=== PATIENT | male | born 1955 | race Caucasian/White ===

== ENCOUNTER → 2023-09-16 14:08 | Outpatient (REF) | payer MEDICARE, OTHER, SELFPAY | LOC: RCS 14:08 | PROVIDERS: ATTENDING PHYSICIAN Nurse Practitioner; FAMILY PHYSICIAN Family Medicine | DX: R07.89 Other chest pain (principal) | CPT/HCPCS: 93017; 93350 ==

== ENCOUNTER 2024-03-28 12:56 | Inpatient (IN) | payer MEDICARE, OTHER, SELFPAY ==
[2024-03-28] VITALS (12 sets, daily range): BP systolic 115–146; BP diastolic 72–99; BMI 27.1; BMI 26.5
--- NOTE | 2024-03-28 09:00 | ED.GENMED ---
History of Present Illness
<Emily Gomez PA-C - Last Filed: 03/28/24 10:59>
General
Chief Complaint: Heart Rate Problem
Source: patient
Exam Limitations: none
Time Seen by Provider: 03/28/24 08:54
History of Present Illness
History of Present Illness:
68yoM with a history of hyperlipidemia presenting for evaluation of palpitations. Patient noticed palpitations and sweating when he woke up this morning around 5am. He states it feels like his heart is beating in his throat. His friend is a cardiac
surgeon who checked his heart rate which was irregular and he was told to go to the ED for evaluation. Patient reports mild lightheadedness but denies syncope. No chest pain or shortness of breath. No previous history of afib. 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
Dr. Zaidi. He had a stress echocardiogram in September 2023 which was negative for ischemia and EF was 55-60%.
Past History
<Emily Gomez PA-C - Last Filed: 03/28/24 10:59>
Past History
ED Past Medical History: None
ED Past Surgical History: None
Social History
Tobacco: Non-smoker
Alcohol: None
Drug: None
Living: with family
Phy Exam
<Emily Gomez PA-C - Last Filed: 03/28/24 10:59>
General Physical Exam
General Presentation: well appearing and no apparent distress
General age: appears stated age
General Skin: warm and dry
General Habitus: normal
General Mental: alert
ENT Exam
ENT Exam: normocephalic
Cardiovascular Exam
Cardiovascular Exam: no murmur, irregularly irregular, tachycardia and other (HR in 140s during initial exam)
Pulmonary Exam
Pulmonary Exam: lungs clear, no respiratory distress, no rales, no crackles, no rhonchi and no wheezing
Neurological Exam
Neurological Exam: alert
Nicky Coma Scale
Eye Opening: Spontaneous
Verbal Response: Oriented
Motor Response: Obeys Commands
GCS Total Score: 15
Skin Exam
Skin Exam: normal color and warm/dry
Psychiatric Exam
Psychiatric Exam: normal mood/affect
<Beni Cox DO - Last Filed: 03/28/24 10:27>
Nicky Coma Scale
GCS Total Score: 15
Course
<Emily Gomez PA-C - Last Filed: 03/28/24 10:59>
Orders/Labs/Results
Orders:
Orders
03/28/24 08:37
Electrocardiogram (*1) Urgent
Reason for Study: Atrial Fibrillation
EKG- Treatment ONCE
03/28/24 08:59
Cardiac Monitoring- Treatment ONCE
0.9% Sodium Chloride 1000 ml [Nss] 1,000 ml IV BOLUS
Diltiazem HCl [Cardizem] 15 mg IV NOW STA
03/28/24 09:07
Complete Blood Count/With Diff Urgent
TSH Reflex To Free T4 Urgent
Troponin I Urgent
03/28/24 09:08
Comprehensive Metabolic Panel Urgent
Magnesium Urgent
PTT Urgent
Prothrombin Time Urgent
03/28/24 09:15
Diltiazem 125 mg/125 ml Nss [Cardizem] 125 mg in 125 ml IV PER PROTOCOL
Initial dose in mg/hr, then titrate:: 5
Titrate to keep:: Heart rate 80-100 bpm
Titrate by mg/hr:: 5 mg/hr
Frequency of titrations (minutes):: 15
Maximum dose in mg/hr:: 15
Abnormal Lab Results
03/28/24 03/28/24
09:07 09:08
Absolute Monos (auto) 1.0 H 10^3/uL
(0.1-0.6)
Monocytes % 12.7 H %
(1.7-9.3)
Glucose 105 H mg/dl
(70-99)
03/28/24 09:07
03/28/24 09:08
Vital Signs
Initial and Last Documented VS:
Initial Vital Signs
Temp Pulse Resp BP Pulse Ox
97.6 F 62 18 116/72 100
03/28/24 08:44 03/28/24 08:44 03/28/24 08:44 03/28/24 08:44 03/28/24 08:44
Last Documented Vital Signs
Temp Pulse Resp BP Pulse Ox
97.6 F 93 19 117/87 97
03/28/24 08:44 03/28/24 10:00 03/28/24 10:00 03/28/24 10:00 03/28/24 10:00
<Beni Cox, - Last Filed: 03/28/24 10:27>
Orders/Labs/Results
Orders:
Orders
03/28/24 08:37
Electrocardiogram (*1) Urgent
Reason for Study: Atrial Fibrillation
EKG- Treatment ONCE
03/28/24 08:59
Cardiac Monitoring- Treatment ONCE
0.9% Sodium Chloride 1000 ml [Nss] 1,000 ml IV BOLUS
Diltiazem HCl [Cardizem] 15 mg IV NOW STA
03/28/24 09:07
Complete Blood Count/With Diff Urgent
TSH Reflex To Free T4 Urgent
Troponin I Urgent
03/28/24 09:08
Comprehensive Metabolic Panel Urgent
Magnesium Urgent
PTT Urgent
Prothrombin Time Urgent
03/28/24 09:15
Diltiazem 125 mg/125 ml Nss [Cardizem] 125 mg in 125 ml IV PER PROTOCOL
Initial dose in mg/hr, then titrate:: 5
Titrate to keep:: Heart rate 80-100 bpm
Titrate by mg/hr:: 5 mg/hr
Frequency of titrations (minutes):: 15
Maximum dose in mg/hr:: 15
Abnormal Lab Results
03/28/24 03/28/24
09:07 09:08
Absolute Monos (auto) 1.0 H 10^3/uL
(0.1-0.6)
Monocytes % 12.7 H %
(1.7-9.3)
Glucose 105 H mg/dl
(70-99)
03/28/24 09:07
03/28/24 09:08
Vital Signs
Initial and Last Documented VS:
Initial Vital Signs
Temp Pulse Resp BP Pulse Ox
97.6 F 62 18 116/72 100
03/28/24 08:44 03/28/24 08:44 03/28/24 08:44 03/28/24 08:44 03/28/24 08:44
Last Documented Vital Signs
Temp Pulse Resp BP Pulse Ox
97.6 F 93 19 117/87 97
03/28/24 08:44 03/28/24 10:00 03/28/24 10:00 03/28/24 10:00 03/28/24 10:00
<Emily Gomez PA-C - Last Filed: 03/28/24 10:59>
MDM/Problems Addressed
Differential Diagnosis Includes:
68yoM here with palpitations and sweating that began when he woke up from sleep this morning. HR was irregular. EKG in triage shows rapid afib. No prior history of afib. BP stable. He is non-toxic appearing. Exam otherwise reassuring. Differential
diagnosis includes but is not limited to: arrhythmia, electrolyte abnormality, thyroid dysfunction
Initial ED plan: Patient placed on case monitor. Check cardiac labs, TSH, magnesium, and EKG. 15mg IV Cardizem and fluid bolus ordered.
<Emily Gomez PA-C - Last Filed: 03/28/24 10:59>
*EKG
Interpreted by ED Provider?: Yes
EKG Intrepretation Date: 03/28/24
Heart Rate: 105
Rate: tachycardiac
Rhythm: a-fib
Boelus: normal axis
Interval: normal interval
QRS Pattern: normal QRS
Ischemia: non-specific ST changes
*Critical Care Note
Total Time (30-74mins, 75-104mins- exclusive of procedures): Not Applicable
<Emily Gomez PA-C - Last Filed: 03/28/24 10:59>
Update Note
Update Note:
Labs unremarkable including normal electrolytes, TSH, and troponin. Cardizem gtt initiated. Heart rates controlled in the 80s although patient remains in afib. Patient reports intermittent symptoms over the past few weeks and is not anticoagulated.
Will defer cardioversion. Patient admitted for further management.
ED Attending Note
<Emily Gomez PA-C - Last Filed: 03/28/24 10:59>
-
Portions of this chart may have been created with voice recognition software.� Occasional wrong word or��sound alike� substitutions may have occurred due to the inherent limitations of voice recognition software.
<Beni Cox DO - Last Filed: 03/28/24 10:27>
ED Attending Note
Patient seen and examined by attending physician: Yes
I performed the substantive portion of visit, reviewed & personally made and approve the management plan that is documented in note by myself or BALJINDER.: Yes
ED Attending Note:
I evaluated the patient at bedside. After the patient was placed on Cardizem drip, the patient is rate controlled but remains in A-fib. Rates are in the 80s. Lab work unremarkable. Considered electrical cardioversion as most of his symptoms
started this morning around 5 AM however he also reports some symptoms intermittently over the last few weeks and he is not currently anticoagulated.
Discharge Plan
Departure
Patient Disposition: Admit
Date of Disposition: 03/28/24
Time of Disposition: 10:18
Presentation/result/management discussed w/ accepting /DO: Hospitalist
Discharge Problem:
New onset atrial fibrillation
Prescriptions:
No Action
tamsulosin [Flomax] 0.4 mg Capsule
0.4 mg PO DAILY
ezetimibe [Zetia] 10 mg Tablet
10 mg PO DAILY
rosuvastatin [Crestor] 40 mg Tablet
40 mg PO DAILY
Theragen Tablet
1 tab PO DAILY
aspirin 81 mg Tablet,Delayed Release (Dr/Ec)
81 mg PO DAILY
Referrals:
Kamlesh Tavera DO [Family Provider] -
Interventions
Interventions:
*Risk Screen - Suicide Last Done: 03/28/24 08:44
*General Assessment Last Done: 03/28/24 08:44
*Neglect/Abuse Screening Last Done: 03/28/24 08:44
ED- Cardiac Assessment Last Done: 03/28/24 09:10
ED- Pulmonary Assessment Last Done: 03/28/24 09:10
Discharge Date and Time
Print Language: SWISS
[2024-03-28] MEDS: NSS 1000 IV (09:05)
[2024-03-28] MEDS: CARDIZEM 15 MG IV (09:05)
[2024-03-28] MEDS: CARDIZEM 125 IV (09:22)
[2024-03-28 09:36] LABS: % Basophils 1.4 % (0-2); % Eosinophils 3.3 % (0-6); % Immature Granulocytes 0.3 % (0-0.5); % Lymphocytes 34.1 % (20.5-51.1); % Monocytes 12.7 % (1.7-9.3); % Neutrophils 48.2 % (42.2-75.2); Absolute Basophils 0.1 10^3/uL (0-0.2); Absolute Eosinophils 0.3 10^3/uL (0-0.7); Absolute Lymphocytes 2.6 10^3/uL (1.2-3.4); Absolute Neutrophils 3.7 10^3/uL (1.4-6.5); Hematocrit 48.2 % (39.0-52.0); Hemoglobin 15.9 g/dL (13.0-18.0); Mean Corpuscular Hgb 29.7 pg (27.0-31.0); Mean Corpuscular Volume 89.9 fL (80.0-94.0); Mean Platelet Volume 9.3 fL (7.4-10.4); Nucleated Red Blood Cells % 0 % (-); Platelet Count 300 10^3/uL (130-400); Red Blood Cell Count 5.36 10^6/uL (4.70-6.10); Red Cell Dist. Width 12.8 % (11.5-14.5); White Blood Cell Count 7.6 10^3/uL (4.8-10.8)
[2024-03-28 09:46] LABS: ALT (SGPT) 50 U/L (0-50); AST (SGOT) 42 U/L (17-59); Albumin 4.7 g/dl (3.5-5.0); Alkaline Phosphatase 50 U/L (38-126); Blood Urea Nitrogen 18 mg/dl (9-20); Calcium 9.8 mg/dl (8.4-10.2); Carbon Dioxide 30 mmol/L (22-30); Chloride 106 mmol/L (98-107); Estimated Creatinine Clearance 90 ml/min; Glucose 105 mg/dl (70-99); Potassium 4.3 mmol/L (3.5-5.1); Sodium 142 mmol/L (135-145); Total Bilirubin 0.5 mg/dl (0.2-1.3); Total Protein 7.3 g/dl (6.3-8.2); eGFR > 60.00
[2024-03-28 09:51] LABS: INR 0.95; PT 12.9 Sec (11.4-14.6)
[2024-03-28 09:52] LABS: APTT 33.5 Sec (23.4-35.0)
[2024-03-28 09:57] LABS: Troponin I < 0.012 ng/ml
--- NOTE | 2024-03-28 11:17 | CON.CAR ---
Documented by User: EMI Larry 03/28/24 14:05
Consultation
Consultation Request
Date/Time Consultation Requested: 03/28/24 1019
Date/Time Consultation Performed: 03/28/24 1105
Requesting Provider: Emily Gomez
Performing Provider: Pamela MIDDLETON for Dr. Cool
Reason for Consultation: AFIB
Medical History
-
Chief Complaint: palpitations
History of Present Illness:
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 A doctor he knows assessed
his pulse and told him it was irregular and to go to the ER. He was seen to be in AFIB with RVR and is easily rate-controlled with IV diltiazem.
Past Medical History
Past Medical History: Hypercholesterolemia and Other (as above)
Social History
Tobacco: Non-Smoker
Alcohol: None
Family History
Family History: Other (brother and sister have afib)
Allergies / Home Medications
Allergy/AdvReac Type Severity Reaction Status Date / Time
No Known Allergies Allergy Verified 03/28/24 08:44
�Medication �Instructions �Recorded �Confirmed �Type
aspirin 81 mg tablet,delayed 81 mg PO DAILY 03/28/24 03/28/24 History
release
ezetimibe 10 mg tablet (Zetia) 10 mg PO DAILY 03/28/24 03/28/24 History
rosuvastatin 40 mg tablet (Crestor) 40 mg PO DAILY 03/28/24 03/28/24 History
tamsulosin 0.4 mg capsule (Flomax) 0.4 mg PO DAILY 03/28/24 03/28/24 History
therapeutic multivitamin 1 tab PO DAILY 03/28/24 03/28/24 History
Review of Systems
-
History Source: Patient
All other systems: Negative unless noted
Cardiac: Palpitations
Physical Exam
Vital Signs
Temp Pulse Resp BP Pulse Ox
97.6 F 88 14 117/87 97
03/28/24 08:44 03/28/24 11:00 03/28/24 11:00 03/28/24 10:00 03/28/24 10:00
Lab Results
03/28/24 09:07
03/28/24 09:08
Troponin I < 0.012 ng/ml 03/28/24 09:07
Physical Exam
General: Well Developed, Well Nourished and No Apparent Distress
HEENT: Normocephalic and Anicteric
Respiratory: Clear and Non Labored Respirations
Cardiac: Irregular Rhythm
Musculoskeletal: No Edema
Skin: Warm and Dry
Neuro: AO x 3
Psych: Calm
Impression / Plan
-
AFIB with RVR, new diagnosis, onset not known:
-rate-controlled on diltiazem now. Continue IV diltiazem, which requires intensive monitoring. Follow telemetry.
-start IV heparin, which requires intensive monitoring- transition to Eliquis tomorrow- c/s for pricing. [id number] score is 1 for age. Denies any falls or bleeding issues.
-TSH WNL. Sleep apnea testing as OP.
-JAYNE/CV tomorrow if remains in AFIB- we discussed this plan/procedure and patient is agreeable.
-echo today
Dyslipidemia:
-continue rosuvastatin and Zetia
BPH:
-on Flomax
Data Reviewed
-
EKG: Tracing Personally Visualized and interpreted (AFIB RVR 105 BPM)
Medical Tests (Nuc Med, Echo etc): Report Reviewed by me (Stress echo 09/16/23: Normal Stress Echocardiogram with normal hemodynamic response to exercise. Excellent exercise capacity for age. Overall, low risk stress test. )
Labs: Labs Reviewed by me

Documented by User: Baljeet Cool MD 03/28/24 14:01
Impression / Plan
-
AFIB with RVR, new diagnosis, onset not known:
-rate-controlled on diltiazem now. Continue IV diltiazem, which requires intensive monitoring. Follow telemetry.
-start IV heparin, which requires intensive monitoring- transition to Eliquis tomorrow- c/s CM for pricing. [id number] score is 1 for age. Denies any falls or bleeding issues.
-TSH WNL. Sleep apnea testing as OP.
-JAYNE/CV tomorrow if remains in AFIB- we discussed this plan/procedure and patient is agreeable.
-echo today
Dyslipidemia:
-continue rosuvastatin and Zetia
BPH:
-on Flomax
Patient seen and examined in collaboration with CHLORINATION OPERATOR; agree with below.
68-year-old male with new onset atrial fibrillation (C2V score = 1).
-Continue Cardizem drip.
-Heparin drip.
-Echocardiogram today.
-Arrange JAYNE/cardioversion tomorrow if patient remains in A-fib.
-NPO after MN.
[2024-03-28] MEDS: HEPARIN 4000 UNITS IV (12:34)
[2024-03-28] MEDS: HEPARIN 25000 UNITS/250 ML IV (12:34)
--- NOTE | 2024-03-28 13:14 | HPS.HSE ---
Family Physician
-
Family Physician: Kamlesh Tavera
Chief Complaint
-
New Onset Atrial Fibrillation
History of Present Illness
68-year-old male with a past medical history of hyperlipidemia presented for evaluation of palpitations that began this morning at 5 AM. He states that he felt like his heart was beating in his throat with an abnormal rhythm. His friend who is a
cardiac surgeon checked his heart rate and found it to be irregular and told him to go to the ED for evaluation. Patient said he has had instances of similar symptoms in the past but they usually self resolving within a few minutes. In the ED
patient reports that he has mild lightheadedness but denies any syncope. Patient has a known history of nonobstructive atherosclerosis of the coronary along with aortic iliac atherosclerosis for which he is on aspirin therapy. He reports that his
family has a history of A-fib that affect his brother and sister and that his father from heart attack while he was in his 50s. 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
His previous stress echocardiogram in September of this year was negative for ischemia and ejection fraction was 55-60%. Currently reports no other symptoms.
Medical History
Past Medical History
Past Medical History: Reports Hypercholesterolemia
Additional Past Medical History:
BPH, Artherosclerosis of Iliac Artery, Coronary-Myocardial bridge, Nonobstructive Artherosclerosis of Coronary Artery, Aortic Atherosclerosis
Past Surgical History: Reports Orthopedic
Additional Past Surgical History:
Left knee arthroscopy with Partial medial meniscectomy And debridement of chondral flap tear Medial femoral condyle April 08, 2010
Left LE varicose vein procedure 01/2022
Social History
Tobacco: Non-smoker
Alcohol: None
Drug: None
Living: With Family
Family History
Family History: CAD, Cancer and Other (Father: , Heart Disease Mother: , Alzheimer's Disease, stroke, kidney cancer 5 brother(s) , 3 sister(s) . Brother-rectal cancer Brother-heart disease (A-Fib) Brother-diabetes. Sister- A-Fib No
children.)
Allergies / Home Medications
Allergies reflects when Allergies were last updated in [employer].
Home Medications with original date entered in [employer]
Allergy/Medication List:
Allergies
Allergy/AdvReac Type Severity Reaction Status Date / Time
No Known Allergies Allergy Verified 03/28/24 08:44
Home Medications
aspirin 81 mg tablet,delayed release 81 mg PO DAILY 03/28/24
ezetimibe 10 mg tablet (Zetia) 10 mg PO DAILY 03/28/24
rosuvastatin 40 mg tablet (Crestor) 40 mg PO DAILY 03/28/24
tamsulosin 0.4 mg capsule (Flomax) 0.4 mg PO DAILY 03/28/24
therapeutic multivitamin 1 tab PO DAILY 03/28/24
Review of Systems
-
History Source: Patient
A 12 point ROS was completed and negative except as noted: Yes
Constitutional: Reports No Symptoms
EENT: Reports No Symptoms
Respiratory: Denies Cough or Trouble Breathing
Cardiac: Reports See HPI and Palpitations; Denies Chest Pain or Syncope
Abdomen/GI: Reports No Symptoms
: Reports No Symptoms
Musculoskeletal: Reports No Symptoms
Skin: Reports No Symptoms
Neurological: Reports See HPI
Endocrine: Reports No Symptoms
Hematologic/Lymphatic: Reports No Symptoms
Psych: Reports No Symptoms
Physical Exam
Vital Signs
Vital Signs
Temp Pulse Resp BP Pulse Ox
97.6 F 88 14 117/87 97
03/28/24 08:44 03/28/24 11:00 03/28/24 11:00 03/28/24 10:00 03/28/24 10:00
Physical Exam
General: Well Developed, Well Nourished, No Apparent Distress and Comfortable
HEENT: NormoCephalic, Anicteric, Moist mucous membranes and Atraumatic
Respiratory: Clear and Non Labored Respirations
Cardiac: S1/S2 and Irregular Rhythm
GI: Soft, Non Tender and Non Distended
Musculoskeletal: No Clubbing, No Cyanosis and No Edema
Skin: Warm
Neuro: Awake, Alert, Oriented, AO x 3 and No Motor Deficits
Psych: Calm and Intact Judgment/Insight
Laboratory Results
-
03/28/24 09:07
03/28/24 09:08
Laboratory Results
PT 12.9 Sec (11.4-14.6) 03/28/24 09:08
INR 0.95 03/28/24 09:08
APTT 33.5 Sec (23.4-35.0) 03/28/24 09:08
Total Bilirubin 0.5 mg/dl (0.2-1.3) 03/28/24 09:08
AST 42 U/L (17-59) 03/28/24 09:08
ALT 50 U/L (0-50) 03/28/24 09:08
Alkaline Phosphatase 50 U/L (38-126) 03/28/24 09:08
Troponin I < 0.012 ng/ml 03/28/24 09:07
Data Reviewed
-
Medical Tests (Nuc Med, Echo, EKG etc): Report Reviewed by me, Discussed with Physician, Discussed with Patient and Discussed with Family
Lab Data: Labs Reviewed by me, Discussed with Physician, Discussed with Patient and Discussed with Family
Impression/Plan
-
Assessment:
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 Patient was diagnosed with an
abnormal heart rhythm and was started on IV Diltiazem. Patient's heart rate is now under control but he still remains in A-Fib.
PLAN:
#Newly diagnosed AFIB with RVR with unknown onset
-Patient rate-controlled on IV Diltiazem in the ED
-Cardiology consulted, input appreciated
-Continuing IV Diltiazem upon admission
-Started on IV heparin and planned to transition to Eliquis tomorrow
-[id number] score-> 1
-TSH normal
-Planned for JAYNE/CV tomorrow if patient remains in AFIB
-Echocardiogram for later today
#Hyperlipidemia
-Continue Rosuvastatin and Zetia
#BPH
-Continue Flomax
Full Code
DVT Prophylaxis- Heparin
--- NOTE | 2024-03-28 17:44 | PTCARENOTE ---
Received pt from ER via stretcher, accompanied by ER staff. Pt AAO x3, CHAWLA well, ambulatory to room, no c/o weakness/dizziness. VSS. PLaced on telemetry:Afib. On room air- pulse ox 95%, no SOB noted. Abd soft, rounded, to start chol lowering
diet; aware of NPO past midnight for possible JAYNE/cardioversion. pt had BM in BR after arrival to unit. Voided in BR upon arrival to room. afebrile; skin W/D/I. IV Heparin drip @ 1000 units hr (10 ml/hr) infusing via Rt hand site and Cardizem
drip @ 5 ml/hr (5 mg/hr) infusing via Rt AC site without sx of infiltration. Oriented to 4east, currently resting in bed, no c/o. Will continue to monitor.v
[2024-03-28 18:54] LABS: APTT 94.1 Sec (23.4-35.0)
[2024-03-28 18:56] LABS: D-Dimer < 0.27 ug/mlFEU (0.00-0.50)
[2024-03-29 01:30] LABS: APTT 102.2 Sec (23.4-35.0)
[2024-03-29 03:18] VITALS: BP 127/71
--- NOTE | 2024-03-29 06:51 | W.PN.UPDATE ---
Update Note
Progress Note Update
RN notified SUPERVISOR BAKERY SANITATION HR 60's-70's, 125/79. on Cardizem drip. EKG confirms NSR. Patient asymptomatic. Will hold Cardizem drip at present.
[2024-03-29 08:08] VITALS: BP 122/69
[2024-03-29] MEDS: FLOMAX 0.4 MG PO (08:33)
[2024-03-29] MEDS: ZETIA 10 MG PO (08:33)
[2024-03-29] MEDS: ASPIR LOW (ENTERIC COATED) 81 MG PO (08:33)
[2024-03-29] MEDS: CRESTOR 40 MG PO (08:33)
[2024-03-29] MEDS: THERAGRAN 1 TABLET PO (08:33)
[2024-03-29 08:40] LABS: Hematocrit 43.9 % (39.0-52.0); Hemoglobin 14.8 g/dL (13.0-18.0); Mean Corp Hgb Conc. 33.7 g/dL (33.0-37.0); Mean Corpuscular Hgb 29.8 pg (27.0-31.0); Mean Corpuscular Volume 88.5 fL (80.0-94.0); Mean Platelet Volume 9.4 fL (7.4-10.4); Platelet Count 274 10^3/uL (130-400); Red Blood Cell Count 4.96 10^6/uL (4.70-6.10); Red Cell Dist. Width 13.1 % (11.5-14.5); White Blood Cell Count 8.2 10^3/uL (4.8-10.8)
[2024-03-29 09:02] LABS: Blood Urea Nitrogen 17 mg/dl (9-20); Calcium 9.5 mg/dl (8.4-10.2); Carbon Dioxide 26 mmol/L (22-30); Chloride 103 mmol/L (98-107); Estimated Creatinine Clearance 103 ml/min; Glucose 94 mg/dl (70-99); Potassium 4.4 mmol/L (3.5-5.1); Sodium 138 mmol/L (135-145); eGFR > 60.00
[2024-03-29 09:04] LABS: APTT 89.5 Sec (23.4-35.0)
--- NOTE | 2024-03-29 09:34 | W.PN.HOSP.TC ---
Today's Communication/Plan
-
Patient has been feeling well and in sinus rhythm now. Will await Cardio input about whether he can be discharged today.
Assessment / Plan
Assessment / Plan
Assessment:
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 Patient was diagnosed with an
abnormal heart rhythm and was started on IV Diltiazem. Patient's heart rate is now under control and is now in sinus rhythm.
PLAN:
#Newly diagnosed AFIB with RVR with unknown onset
-Patient rate-controlled on IV Diltiazem in the ED then continued upon admission
-Cardiology consulted, input appreciated
-Echo 03/28/2024: LV ejection fraction is 55-60%, by visual assessment. No regional wall motion abnormalities are seen.
Enlarged right ventricular size. Normal right ventricular systolic function.
Trace tricuspid regurgitation. Estimated pulmonary artery pressure of 20-25 mmHg.
-Patient returned to sinus rhythm and Diltiazem gtt was discontinued
-Started on IV heparin and planned to transition to Eliquis tomorrow
-[id number] score-> 1
-TSH normal
-Awaiting Cardio input for potential discharge today
#Hyperlipidemia
-Continue Rosuvastatin and Zetia
#BPH
-Continue Flomax
Full Code
DVT Prophylaxis- Heparin
Anticipated Discharge: Today
Subjective/Interval History
-
Date of Service: March 29, 2024
Patient says that he had a great and uneventful night. His heart palpitations have seemed to resolve and he has no further symptoms at this time.
Objective Data
-
Labs:
Laboratory Results
03/29/24 03/29/24
01:01 08:01
WBC 8.2
Hgb 14.8
Hct 43.9
Plt Count 274
APTT 102.2 H 89.5 H
Sodium 138
Potassium 4.4
Chloride 103
Carbon Dioxide 26
BUN 17
Creatinine 0.7
Glucose 94
Calcium 9.5
Vital Signs:
Vital Signs
Temp Pulse Resp BP Pulse Ox
97.4 F 58 18 122/69 96
03/29/24 08:08 03/29/24 08:08 03/29/24 08:08 03/29/24 08:08 03/29/24 08:08
I&O
03/28/24 03/29/24 03/30/24
06:59 06:59 06:59
Intake Total 306 / 306
Output Total 350 / 350
Balance -44 / -44
Review of Systems
-
History Source: Patient
Constitutional: Reports No Symptoms
EENT: Reports No Symptoms Reported
Respiratory: Denies Cough or Trouble Breathing
Cardiac: Denies Chest Pain, Palpitations or Syncope
Abdomen/GI: Denies Abdominal Pain, Nausea or Vomiting
Musculoskeletal: Reports No Symptoms
Skin: Reports No Symptoms
Neuro: Denies Dizzy, Headache or Weakness
Endocrine: Reports No Symptoms
Hematologic / Lymphatic: Reports No Symptoms
Allergy / Immunology: Reports No Symptoms
Physical Exam
-
General: Well Developed, Well Nourished, No Apparent Distress and Comfortable
HEENT: Normocephalic and Atraumatic
Respiratory: Clear to Auscultation and Non Labored Respirations
Cardiac: Regular Rhythm and S1/S2
GI: Soft, Nontender and Nondistended
Musculoskeletal: No Clubbing, No Cyanosis and No Edema
Skin: Warm
Neuro: Awake, Alert, Oriented, AO x 3 and No Motor Deficits
Psych: Calm
Data Reviewed
-
Medical Tests (Nuc Med, Echo etc): Report Reviewed by me, Discussed with Physician, Discussed with Nurse and Discussed with Patient
Labs: Labs Reviewed by me, Discussed with Physician and Discussed with Patient
--- NOTE | 2024-03-29 11:19 | W.PN.CD ---
Today's Communication / Plan
-
Start Diltiazem 120mg daily
Start Apixaban 5mg BID
I have requested follow-up with our office in 2-4 weeks. We will call him with an appointment.
Impression / Plan
-
68-year-old male with new onset atrial fibrillation (C2V score = 1).
AFIB with RVR, new diagnosis, onset not known:
-Resolved with IV Diltiazem. Now back in SR
-switch diltiazem to PO 120mg daily
-[id number] score is 1 for age. Denies any falls or bleeding issues.
-Start Apixaban 5mg BID
-Sleep apnea testing as OP.
Dyslipidemia:
-continue rosuvastatin and Zetia
BPH:
-on Flomax
Subjective: Patient broke out of afib and back into sinus rhythm obernight. Feels fine this morning. Ready to go home. Telemetry with sinus rhythm. HR 60s.
Physical Exam
Vital Signs/Labs
Vital Signs
Temp Pulse Resp BP Pulse Ox
97.4 F 58 18 122/69 96
03/29/24 08:08 03/29/24 08:08 03/29/24 08:08 03/29/24 08:08 03/29/24 08:08
03/28/24 03/29/24 03/30/24
06:59 06:59 06:59
Actual Weight 83.688 kg
03/29/24 08:01
03/29/24 08:01
PT 12.9 Sec (11.4-14.6) 03/28/24 09:08
INR 0.95 03/28/24 09:08
APTT 89.5 Sec (23.4-35.0) H 03/29/24 08:01
Magnesium 2.0 mg/dl (1.6-2.3) 03/28/24 09:08
LAB Results
03/28/24
09:07
Troponin I < 0.012
Physical Exam
Constitutional: No acute distress and Comfortable
Cardiovascular: Rhythm & rate is regular, Pedal edema is absent, JVD pressure is normal, S1S2 is normal and Murmur/rub/gallop absent
Respiratory: Respiratory effort normal and Lungs clear to auscul.
Neuro/Psych: AO x 3
Data Reviewed
-
Date of Service: March 29, 2024
Medical Decision Making: Reviewed Test Results, Independent Historian Assessment, Test Interpretation and Review of Case with other Provider
EKG: Tracing Personally Visualized and interpreted
Echo: Report Reviewed by me
Labs: Labs Reviewed by me
[2024-03-29 11:55] VITALS: BP 132/105
--- NOTE | 2024-03-29 13:04 | PTCARENOTE ---
Reviewed discharge instructions with patient. Patient given samples of Eloquis by cardiology. Patient understands usage and to take bleeding precautions. Patient received confirmation that medications are available for picker and packer at [facility]. IVs removed
and tele removed. Vital signs stable. Patient left ambulatory with staff escort. Patient aware of signs/symptoms to call MD and to call for follow up appointment for cardiology.
--- NOTE | 2024-03-29 13:20 | CM ---
CM attempted to complete IA, however pt was already discharged. I had obtained pricing for Apixaban and Xarelto which was shared with Kamlesh by the physician. Samples provided by cardiology.
Pt was discharged to home without CM assessment.
--- NOTE | 2024-03-29 14:41 | W.DCSUMMARY ---
Documented by User: Elsy Barth MD, Resident 03/29/24 15:14
Discharge Summary
Discharge Data
Date of Admission: 03/28/24
Date of Discharge: 03/29/24
-
Pending Results: No
Hospital Course
Discharging Physician : Dr. Jose R Ellison, Dr. Elsy Barth
Disposition : Home
Primary care physician : Dr. Kamlesh Tavera
Principal Discharge diagnosis : New Onset Atrial Fibrillation
Chronic Discharge diagnosis : Nonobstructive ASCVD (Coronary, Aortoiliac), Myocardial Bridging Hyperlipidemia, BPH
Hospital Course :
68 year old male with a past medical history of nonobstructive ASCVD (Coronary, Aortoiliac), Myocardial Bridging Hyperlipidemia, and BPH came to the [facility] ED on 03/28/2024 due to heart palpitations that had started 5am that morning. Patient
stated that he felt like his heart was beating in his throat with an abnormal rhythm. Patient was found to be tachycardic and his heart rhythm was in A-Fib in the ED. He was subsequently started on a Cardizem drip and his heart rate improved,
however he continued to remain in A-Fib. Patient's other medications were continued at this time. Cardiology was consulted at this time and patient was started on a heparin drip and underwent an Echocardiogram which showed no abnormalities other
than an enlarged right ventricular size. His heart rhythm confirmed to normal sinus rhythm and patient continued to be asymptomatic as his Cardizem drip was held. Patient was evaluated by Cardiology and discharged with a prescription for Diltiazem
120mg PO daily and to start Apixaban 5mg BID. He will follow up with Cardiology in the outpatient setting. He had no symptoms or complaints upon discharge.
Important imaging findings :
Electrocardiogram (03/28/2024)
ATRIAL FIBRILLATION WITH RAPID VENTRICULAR RESPONSE
NONSPECIFIC ST ABNORMALITY
ABNORMAL ECG
WHEN COMPARED WITH ECG OF 08-APR-2010 11:21,
ATRIAL FIBRILLATION HAS REPLACED SINUS RHYTHM
VENT. RATE HAS INCREASED BY [address] NOW DEPRESSED IN ANTERIOR LEADS
NONSPECIFIC T WAVE ABNORMALITY NOW EVIDENT IN INFERIOR LEADS
Echocardiogram (03/28/2024)
LV ejection fraction is 55-60%, by visual assessment. No regional wall motion abnormalities are seen.
Enlarged right ventricular size. Normal right ventricular systolic function.
Trace tricuspid regurgitation. Estimated pulmonary artery pressure of 20-25 mmHg.
Discharge Plan
-
Patient Disposition: Home (Routine Discharge)
Discharge Diagnosis/Procedures: New Onset A-Fib
Condition: Good
Diet: Low Cholesterol
Activity: No restrictions and As tolerated
Driving Restrictions: As prior to admission
Bathing Restrictions: None
Referrals:
Kamlesh Tavera DO [Family Provider] -
Ramesh Zaidi MD [Active] -
Additional Discharge Medication Instructions: Follow up with cardiology (Appt on 04/20/2024 at 8:40am)
Take 1 Pill of Cardizem 120mg once daily
Take Eliquis 5mg twice daily
Prescriptions:
New
diltiazem HCl 120 mg capsule,extended release 24hr
120 mg PO DAILY 30 Days Qty: 30 2RF
Eliquis 5 mg tablet
5 mg PO BID 30 Days Qty: 60 0RF
Continued
tamsulosin [Flomax] 0.4 mg Capsule
0.4 mg PO DAILY
ezetimibe [Zetia] 10 mg Tablet
10 mg PO DAILY
rosuvastatin [Crestor] 40 mg Tablet
40 mg PO DAILY
therapeutic multivitamin Tablet
1 tab PO DAILY
aspirin 81 mg Tablet,Delayed Release (Dr/Ec)
81 mg PO DAILY
Discharge Orders:
Discharge Patient (As Directed); Ordered 03/29/24
Ordered By: Elsy Barth
Discharge Date and Time
Discharge Date/Time: 03/29/24 12:43
Print Language: SWISS

Documented by User: Jose R Ellison DO 03/30/24 09:13
Discharge Summary
Discharge Data
Date of Admission: 03/28/24
Date of Discharge: 03/30/24
Discharge Plan
-
Patient Disposition: Home (Routine Discharge)
Discharge Diagnosis/Procedures: New Onset A-Fib
Condition: Good
Diet: Low Cholesterol
Activity: No restrictions and As tolerated
Driving Restrictions: As prior to admission
Bathing Restrictions: None
Referrals:
Kamlesh Tavera DO [Family Provider] -
Ramesh Zaidi MD [Active] -
Additional Discharge Medication Instructions: Follow up with cardiology (Appt on 04/20/2024 at 8:40am)
Take 1 Pill of Cardizem 120mg once daily
Take Eliquis 5mg twice daily
Prescriptions:
New
diltiazem HCl 120 mg capsule,extended release 24hr
120 mg PO DAILY 30 Days Qty: 30 2RF
Eliquis 5 mg tablet
5 mg PO BID 30 Days Qty: 60 0RF
Continued
tamsulosin [Flomax] 0.4 mg Capsule
0.4 mg PO DAILY
ezetimibe [Zetia] 10 mg Tablet
10 mg PO DAILY
rosuvastatin [Crestor] 40 mg Tablet
40 mg PO DAILY
therapeutic multivitamin Tablet
1 tab PO DAILY
aspirin 81 mg Tablet,Delayed Release (Dr/Ec)
81 mg PO DAILY
Discharge Orders:
Discharge Patient (As Directed); Ordered 03/29/24
Ordered By: Elsy Barth
Discharge Date and Time
Discharge Date/Time: 03/29/24 12:43
Print Language: SWISS
== END 2024-03-29 12:43 | disposition home or self-care (01) | DRG 309 ==
LOC: 4 EAST ACU 12:56
PROVIDERS: Nurse Practitioner; Physician Assistant; ADMITTING PHYSICIAN Internal Medicine; CONSULT PHYSICIAN Internal Medicine; EMERGENCY PHYSICIAN Emergency Medicine; FAMILY PHYSICIAN Family Medicine
DX: I48.91 Unspecified atrial fibrillation (principal); Q24.5 Malformation of coronary vessels; I25.10 Atherosclerotic heart disease of native coronary artery without angina pectoris; N40.0 Benign prostatic hyperplasia without lower urinary tract symptoms; I70.0 Atherosclerosis of aorta; I51.7 Cardiomegaly; E78.00 Pure hypercholesterolemia, unspecified; Z82.49 Family history of ischemic heart disease and other diseases of the circulatory system; Z79.82 Long term (current) use of aspirin; Z79.899 Other long term (current) drug therapy
CPT/HCPCS: 80048; 80053; 83735; 84443; 84484; 85025; 85027; 85379; 85610; 85730; 93005; 93306; 96365; 96366; 96367; 99285

== ENCOUNTER → 2024-04-26 10:21 | Outpatient (REF) | payer MEDICARE, OTHER, SELFPAY | LOC: RCS 10:21 | PROVIDERS: ATTENDING PHYSICIAN Nurse Practitioner Gerontology; FAMILY PHYSICIAN Family Medicine | DX: I48.0 Paroxysmal atrial fibrillation (principal) | CPT/HCPCS: 93225; 93226 ==

== ENCOUNTER → 2024-06-30 07:20 | Outpatient (REF) | payer MEDICARE, OTHER, SELFPAY | LOC: HWRAD 07:20 | PROVIDERS: ATTENDING PHYSICIAN Family Medicine | DX: E04.1 Nontoxic single thyroid nodule (principal) | CPT/HCPCS: 76536 ==

== ENCOUNTER → 2024-07-27 08:30 | Outpatient (REF) | payer MEDICARE, OTHER, SELFPAY | LOC: PAVMRI 08:30 | PROVIDERS: ATTENDING PHYSICIAN Family Medicine | DX: I67.1 Cerebral aneurysm, nonruptured (principal) | CPT/HCPCS: 70544 ==

== ENCOUNTER → 2024-07-27 10:11 | Outpatient (REF) | payer MEDICARE, OTHER, SELFPAY ==
[2024-07-27 14:14] VITALS: BP 139/75; BP_SYST 55
== END ==
LOC: RADI 10:11
PROVIDERS: ATTENDING PHYSICIAN Family Medicine
DX: E04.2 Nontoxic multinodular goiter (principal)
CPT/HCPCS: 88173; 10005; 10006; 36415; 84439; 84443; 84480

== ENCOUNTER → 2024-09-01 14:44 | Outpatient (REF) | payer MEDICARE, OTHER, SELFPAY | LOC: PAVMRI 14:44 | PROVIDERS: ATTENDING PHYSICIAN Family Medicine | DX: I67.1 Cerebral aneurysm, nonruptured (principal) | CPT/HCPCS: 70549; A9585 ==

== ENCOUNTER → 2024-09-26 08:44 | Outpatient (REF) | payer MEDICARE, OTHER, SELFPAY ==
[2024-09-26 09:56] LABS: % Basophils 1.2 % (0-2); % Immature Granulocytes 0.3 % (0-0.5); % Lymphocytes 25.2 % (20.5-51.1); % Monocytes 11.1 % (1.7-9.3); % Neutrophils 59.2 % (42.2-75.2); Absolute Basophils 0.1 10^3/uL (0-0.2); Absolute Eosinophils 0.3 10^3/uL (0-0.7); Absolute Lymphocytes 2.3 10^3/uL (1.2-3.4); Absolute Neutrophils 5.5 10^3/uL (1.4-6.5); Hematocrit 45.4 % (39.0-52.0); Mean Corpuscular Hgb 29.4 pg (27.0-31.0); Mean Corpuscular Volume 88.8 fL (80.0-94.0); Mean Platelet Volume 9.3 fL (7.4-10.4); Nucleated Red Blood Cells % 0 % (-); Platelet Count 263 10^3/uL (130-400); Red Blood Cell Count 5.11 10^6/uL (4.70-6.10); Red Cell Dist. Width 13.1 % (11.5-14.5); White Blood Cell Count 9.2 10^3/uL (4.8-10.8)
[2024-09-26 10:32] LABS: ALT (SGPT) 38 U/L (0-50); AST (SGOT) 27 U/L (17-59); Albumin 4.8 g/dl (3.5-5.0); Alkaline Phosphatase 54 U/L (38-126); Blood Urea Nitrogen 14 mg/dl (9-20); Calcium 9.6 mg/dl (8.4-10.2); Carbon Dioxide 26 mmol/L (22-30); Chloride 106 mmol/L (98-107); Glucose 86 mg/dl (70-99); Potassium 4.8 mmol/L (3.5-5.1); Sodium 141 mmol/L (135-145); Total Bilirubin 0.9 mg/dl (0.2-1.3); Total Protein 7.2 g/dl (6.3-8.2); eGFR > 60.00
== END ==
LOC: SDSPAT 08:44
PROVIDERS: ATTENDING PHYSICIAN Internal Medicine Cardiovascular Disease; FAMILY PHYSICIAN Family Medicine; OTHER PHYSICIAN Internal Medicine Cardiovascular Disease
DX: I48.91 Unspecified atrial fibrillation (principal); I48.0 Paroxysmal atrial fibrillation
CPT/HCPCS: 36415; 80053; 85025; 86850; 86900; 86901

== ENCOUNTER 2024-10-04 07:47 | Day surgery (SDC) | payer MEDICARE, OTHER, SELFPAY ==
[2024-09-26 08:51] VITALS: BMI 28.5
[2024-10-04] VITALS (13 sets, daily range): BP systolic 97–152; BP diastolic 71–122
[2024-10-04] MEDS: NSS 500 IV (08:53)
[2024-10-04 11:41] LABS: ACT-LR - POC 398 Seconds (116-155)
[2024-10-04 12:04] LABS: ACT-LR - POC 303 Seconds (116-155)
--- NOTE | 2024-10-04 12:14 | ITS.CL.ABL ---
Medical Tech - Ablation
Ablation
Procedure Report:
AFIB ablation:
Mr. Rodrigues is a very pleasant 68 yr old gentleman with symptomatic paroxysmal AF, is recommended for atrial fibrillation ablation.
Date of the Procedure:
10/04/2024
Indications:
Paroxysmal atrial fibrillation
Pre-Operative Diagnosis:
Paroxysmal atrial fibrillation
Post-Operative Diagnosis:
Paroxysmal atrial fibrillation
Procedure Performed:
Atrial fibrillation ablation with Pulsed-Field approach for pulmonary vein isolation
Performing Physician:
Tello Myers MD
Assistants:
EP staff
Anesthesia:
See anesthesia records
Detailed Description of the Procedure:
Written informed consent was obtained from the patient after a full explanation of the risks and benefits of the procedure including the risks of sedation and anesthesia.
The patient was brought to the electrophysiology laboratory in stable condition in fasting state. Continuous electrocardiographic and hemodynamic monitoring was initiated.
The initial rhythm was sinus.
The procedure site was meticulously prepared with surgical scrub and allowed to dry with no pooling. Sterile draping was applied to cover the procedure site. The image intensifier was draped with sterile bag and positioned over the patient. After
infusion of local anesthetic, vascular access was obtained under ultrasound guidance and sheaths were placed over guide wire as detailed below.
Sheath and Catheter Placement:
The following catheters / sheaths were placed
Sheaths:
��������� 17Fr steerable sheath (Interactivoadrive�, IntroFly) in right femoral
��������� 9Fr in right femoral vein
Catheters:
��������� MILDRED HD Grid mapping catheter � at locations of RA, LA
��������� Farawave� PFA catheter
��������� ICE catheter � AcuNav - at locations of RA, SVC, and RV.
Intracardiac ECHO:
An 8-Yemeni AcuNav intracardiac ECHO (ICE) probe was advanced through the 9-Yemeni sheath in the right femoral vein into the right atrium under fluoroscopic and ICE ultrasound image guidance and a baseline ECHO study was performed. The left atrial
size was normal. There was moderate tricuspid regurgitation. The aortic valve was grossly normal. There was normal left ventricular systolic functions. There is trace pericardial effusion. All the four veins were identified and has flow identified.
There was good flow noted in the ANDRA.
During the procedure, ICE was used for monitoring of complications, guidance of trans-septal puncture, monitor the catheter position and tracking ablation lesions. No change in the pericardial space noted throughout the procedure.
Trans-septal Puncture:
Heparin was initiated and infused to maintain appropriate ACT. A pigtail guidewire was advanced through the 8-Yemeni sheath in the right femoral vein into the superior vena cava under fluoroscopic and ICE guidance. The 9-Yemeni sheath was exchanged
for a Faradrive sheath which was advanced into the superior vena cava. A transseptal RF pigtail via Faradrive connect system was utilized to perform the trans-septal puncture. The apparatus was withdrawn until it was in contact with the fossa
ovalis. The position was adjusted based on fluoroscopy and ultrasound images from ICE. Under fluoroscopic, hemodynamic and ICE ultrasound guidance, left atrium was cannulated by applying RF energy. Once atrial septum was cannulated, the pigtail wire
was advanced through the needle into the left atrium. The guide wire was advanced into the left superior pulmonary vein. Both the sheath and the dilator was advanced into the left atrium. The dilator with the needle was withdrawn. Blood was
aspirated from the Faradrive sheath and arterial blood confirmed. The sheath was flushed. Saline injection noted into the left atrium on ICE. The mapping catheter was advanced in the sheath into the left pulmonary vein. Left atrial pressure was
measured.
3D Electroanatomic Mapping:
Using the HD Grid catheter advanced through sheath into the left atrium, an electroanatomic map (EAM) of the left atrium was created using TerraPass MILDRED mapping system. The map was used for localization of catheter position and tacking of ablation
lesions.
The EAM of the left atrium showed 4 pulmonary veins with all 4 veins electrically connected to the body the LA. It showed normal voltage on the posterior and anterior wall of the LA. The LA was mildly dilated in size.
Following the EAM, preparation were made for ablation.
Ablation:
Ablation # 1: Pulmonary vein Isolation:
Glycopyrrolate 0.2 mg was given prior to the placement of ablation.
Using FarShodogg pulsed wave ablation system, pulmonary vein isolation was achieved. First the ablation catheter was placed in the LSPV and ostial ablation lesions were performed in a counter clock mortensen approach all around the PV ostium
circumferentially using the Farapulse catheter in �Sanford� formation. Then the catheter was placed on the antral location (in Disc/flower formation) and multiple ablation lesions were placed circumferentially on the antrum of the vein.
In the similar fashion, the LIPV were isolated.
Then the catheter was moved to right sided veins. The ostial and antral ablations were placed as noted above.
EPS and Confirmation of the PVI and bidirectional block:
Following achievement of entrance block at the pulmonary veins, pacing from the HD catheter in each of the four veins at 10 milliamps for 2 milliseconds showed entrance and exit block. All PVI were rechecked at the end of the case and remained
isolated. Entrance and exit block were demonstrated in all veins.
Post ablation Electroanatomic mapping:
Once ablation was completed, the EAM of the LA was done again in sinus rhythm with excellent demarcation of LA myocardium and isolated antral tissue. There was no significant scarring noted in the LA.
The ANDRA had healthy signals and was not isolated.
Procedure End
ICE study was done again that showed no epicardial accumulation. No complications noted.
Following the completion of the EP study, catheters were removed. Protamine 40 mg was given at the end of the procedure and ACT was checked repeatedly. The sheaths were removed and hemostasis achieved with �Figure of 8� and manual compression after
acceptable ACT is achieved.
Left atrial Pressure:
Mean LA pressure was 8mmHg
Estimated Blood loss:
<10 cc
Specimens Removed:
None.
Implants / Devices:
None
Urine output:
None
Packs / Drains/ Tubes:
None
Instrument / Sponge Count Correct:
Yes
Complications of the Procedure:
None
Condition of Patient at Time of Transfer:
Hemodynamically stable with no neurological or vascular compromise.
Summary:
Successful atrial fibrillation ablation with Pulsed Field approach for pulmonary vein isolation.
Figures from the Procedure:
Figure 1: The electroanatomic mapping (EAM) of the left atrium with bipolar voltage (purple indicates normal electrical activity with roth as no myocardial muscle electric activity indicating a line of block or scar.
[2024-10-04] MEDS: FLOMAX 0.4 MG PO (13:05)
[2024-10-04] MEDS: ANESTHETIC LOZENGE 1 LOZENGE PO (13:49)
--- NOTE | 2024-10-04 15:14 | W.PN.UPDATE ---
Update Note
Progress Note Update
68 yo WM s/p PVI (same day). He denies cp, sob, pablo diet, voiding, EKG SB, R fem site vascade c/d/i no HT< soft. He will resume Eliquis tonight and stop ASA. Activity restrictions reviewed. He will f/u Zaidi in 2 weeks. He is for d/c home after
315pm.
== END 2024-10-04 15:15 | disposition home or self-care (01) ==
LOC: CATH 07:47
PROVIDERS: ATTENDING PHYSICIAN Internal Medicine Cardiovascular Disease; FAMILY PHYSICIAN Family Medicine; OTHER PHYSICIAN Internal Medicine Cardiovascular Disease
DX: I48.0 Paroxysmal atrial fibrillation (principal); E78.2 Mixed hyperlipidemia; I25.10 Atherosclerotic heart disease of native coronary artery without angina pectoris; Z79.82 Long term (current) use of aspirin; Z79.01 Long term (current) use of anticoagulants
CPT/HCPCS: C1732; C1769; 85347; 86900; 86901; 93005; 93656; C1733; C1759; C1760; C1766; C1889; C1892

== ENCOUNTER → 2024-10-24 15:44 | Outpatient (REF) | payer MEDICARE, OTHER, SELFPAY | LOC: RAD 15:44 | PROVIDERS: ATTENDING PHYSICIAN Surgery; FAMILY PHYSICIAN Family Medicine | DX: E04.1 Nontoxic single thyroid nodule (principal) | CPT/HCPCS: 70491; Q9967 ==

== ENCOUNTER → 2024-11-07 07:03 | Outpatient (REF) | payer MEDICARE, OTHER, SELFPAY | LOC: RAD 07:03 | PROVIDERS: ATTENDING PHYSICIAN Family Medicine | DX: R22.2 Localized swelling, mass and lump, trunk (principal) | CPT/HCPCS: 71260; Q9967 ==

== ENCOUNTER 2024-11-29 06:13 | Day surgery (SDC) | payer MEDICARE, OTHER, SELFPAY ==
[2024-11-16 13:47] VITALS: BMI 26.5
[2024-11-29] VITALS (10 sets, daily range): BP systolic 125–149; BP diastolic 77–88; BMI 26.5
[2024-11-29] MEDS: NORMOSOL-R/PLASMALYTE-A 1000 IV (11:17)
[2024-11-29] MEDS: NEURONTIN 300 MG PO (11:21)
[2024-11-29] MEDS: TYLENOL 1000 MG PO (11:22)
[2024-11-29] MEDS: HEPARIN 5000 UNITS SC (11:38)
[2024-11-29] MEDS: DILAUDID 0.25 MG IV ×2 (14:26→14:44)
[2024-11-29] MEDS: ROXICODONE 5 MG PO (16:11)
--- NOTE | 2024-11-29 16:18 | OR.RPT ---
Operative Report
Operative Report
DATE OF OPERATION: November 29, 2024
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
POSTOPERATIVE DIAGNOSIS: Same
SURGEON: Inder Scott M.D.
OPERATION: Resection of the Right Substernal Goiter - 48466
ANESTHESIA: GET
ESTIMATED BLOOD LOSS: 10 cc
DRAINS: None
SPECIMEN: right total thyroid lobe and isthmus
FINDINGS: Multinodular substernal goiter
COMPLICATIONS: None
PROCEDURE:
The patient was taken to the operating room and placed in the usual supine position. After adequate general endotracheal anesthesia was established, the patient�s neck was extended, prepped, and draped in the typical sterile fashion. A 5 cm
transcervical incision was made two fingerbreadths above the sternal notch. The skin incision was made with the #15 blade, which was taken through the skin into the subcutaneous tissue. The underlying platysma muscle was divided, and subplatysmal
flaps were created superiorly to the thyroid cartilage and inferiorly to the sternal notch. Strap muscles were identified and at the midline.
Attention was turned to the patient�s right thyroid lobe. The right thyroid lobe was mobilized medially. During this process, the right middle thyroid vein and inferior thyroid artery were dissected and ligated with Ligasure. There was a substernal
extension, which was delivered out of the mediastinum through the cervical incision. Next, the right superior pole was taken down by dissecting and transecting the superior pole vessels with a Ligasure. The right thyroid lobe was mobilized medially.
During this process, the right recurrent laryngeal nerve was identified and preserved throughout its entire course. The right superior parathyroid gland was identified and preserved. The right thyroid lobe with isthmus was resected from the trachea
and sent to the pathology department.
After achieving adequate hemostasis, the strap muscle was approximated with #3-0 Vicryl in a running fashion, and the platysma muscles were reapproximated with #3-0 Vicryl in an interrupted manner. The skin was then closed with #4-0 Monocryl in a
running subcuticular technique. Steri-strips and sterile dressings were applied. The patient tolerated the procedure well. The final instrument, needle, and sponge counts were correct.
== END 2024-11-29 16:27 | disposition home or self-care (01) ==
LOC: SDS 06:13
PROVIDERS: ATTENDING PHYSICIAN Surgery; FAMILY PHYSICIAN Family Medicine
DX: E04.2 Nontoxic multinodular goiter (principal)
CPT/HCPCS: 60271; 88307; C1776